=== PATIENT | female | born 1995 | race Caucasian/White ===

== ENCOUNTER 2016-05-31 13:56 | Emergency (ER) | payer BC ==
[2016-05-31 14:56] VITALS: BP 125/62
--- NOTE | 2016-05-31 16:02 | UC ---
Throat Pain/Nasal Chase HPI - HPI Summary HPI Summary: ONE DAY FEVER, SORE THROAT, MUSCLE ACHES, GETS FREQUENT STREP. NO FEVER. - History of Current Complaint Chief Complaint: UC Stated Complaint: THROAT PAIN FEVER Time Seen by Provider: 05/31/16 15:04 Hx Obtained From: Patient Hx Last Menstrual Period: 05/21/16 Onset/Duration: Gradual Onset, Lasting Days, Still Present Severity: Moderate Cough: None Associated Signs & Symptoms: Positive: Dysphagia, Hoarseness, Fever - Epiglottits Risk Factors Epiglottis Risk Factors: Negative - Allergies/Home Medications Allergies/Adverse Reactions: Allergies Allergy/AdvReac Type Severity Reaction Status Date / Time Hepatitis A Antigen Allergy Severe Anaphylatic Unverified 05/31/16 14:55 Shock Sulfa Antibiotics Allergy Unknown Flushing Unverified 05/31/16 14:55 PMH/Surg Hx/FS Hx/Imm Hx Previously Healthy: Yes Endocrine History Of: Denies: Diabetes, Thyroid Disease Cardiovascular History Of: Denies: Cardiac Disorders, Hypertension Respiratory History Of: Reports: Asthma - EXERCISE INDUCED Denies: COPD GI/ History Of: Denies: Ulcer - Surgical History Surgical History: Yes Surgery Procedure, Year, and Place: WISDOM TEETH EXTRACTED- ORAL SURGEON OFFICE. TONSILS-2015 - Family History Known Family History: Negative: Respiratory Disease - Social History Occupation: Student Lives: With Family Alcohol Use: Rare Substance Use Type: None Smoking Status (MU): Never Smoked Tobacco Review of Systems Constitutional: Fever Skin: Negative Eyes: Negative ENT: Sore Throat Respiratory: Negative Cardiovascular: Negative Gastrointestinal: Negative Genitourinary: Negative Motor: Negative Neurovascular: Negative Musculoskeletal: Myalgia Neurological: Negative Psychological: Negative All Other Systems Reviewed And Are Negative: Yes Physical Exam Triage Information Reviewed: Yes Appearance: Well-Appearing, No Pain Distress, Well-Nourished Vital Signs: Initial Vital Signs Temp 101.0 F 05/31/16 14:52 Pulse 118 05/31/16 14:52 Resp 18 05/31/16 14:52 BP 125/62 05/31/16 14:52 Pulse Ox 99 05/31/16 14:52 Vital Signs Reviewed: Yes Eye Exam: Normal ENT: Positive: Hearing grossly normal, Pharyngeal erythema, Nasal congestion, TMs normal, Tonsillar swelling Dental Exam: Normal Neck exam: Normal Neck: Positive: Supple, Nontender, No Lymphadenopathy Respiratory Exam: Normal Respiratory: Positive: Chest non-tender, Lungs clear, Normal breath sounds, No respiratory distress, No accessory muscle use Cardiovascular Exam: Normal Cardiovascular: Positive: RRR, No Murmur, Pulses Normal Abdominal Exam: Normal Abdomen Description: Positive: Nontender, No Organomegaly Musculoskeletal Exam: Normal Musculoskeletal: Positive: Strength Intact Neurological Exam: Normal Psychological Exam: Normal Psychological: Positive: Normal Response To Family Skin Exam: Normal Throat Pain/Nasal Course/Dx - Differential Dx/Diagnosis Differential Diagnosis/HQI/PQRI: Pharyngitis, Tonsillitis, URI Provider Diagnoses: TONSILITIS. VIRAL SYNDROME Discharge - Discharge Plan Condition: Stable Disposition: HOME Patient Education Materials: Pharyngitis (ED), Viral Syndrome (ED) Referrals: [place]ia Kaye MD [Primary Care Provider] -
== END 2016-05-31 15:52 | disposition home or self-care (01) ==
LOC: UCEAST 13:56
DX: J03.90 Acute tonsillitis, unspecified (principal); B34.9 Viral infection, unspecified; Z88.2 Allergy status to sulfonamides
CPT/HCPCS: 87502; 87651; 99211; G0463

== ENCOUNTER 2017-07-07 19:22 | Emergency (ER) | payer BC ==
[2017-07-07 19:31] VITALS: BP 114/65
--- NOTE | 2017-07-07 20:05 | UC ---
Throat Pain/Nasal Chase HPI - HPI Summary HPI Summary: couple of days of sore throat and fever seen at [facility] and was strp neg on - --patient is concerned because symptom continues. - History of Current Complaint Chief Complaint: UCRespiratory Stated Complaint: SORE THROAT AND FEVER Time Seen by Provider: 07/07/17 19:54 Hx Obtained From: Patient Hx Last Menstrual Period: 3.5 WEEKS AGO ?: No Onset/Duration: Gradual Onset, Lasting Days, Still Present Severity: Mild Pain Intensity: 0 Cough: None Associated Signs & Symptoms: Positive: Negative - Allergies/Home Medications Allergies/Adverse Reactions: Allergies Allergy/AdvReac Type Severity Reaction Status Date / Time Sulfa (Sulfonamide Allergy Flushing Verified 07/07/17 19:31 Antibiotics) HEPATITIS A ANTIGEN Allergy Severe Anaphylatic Uncoded 07/07/17 19:31 Shock Home Medications: Home Medications Control* 1 tab PO DAILY 07/07/17 [History Confirmed 07/07/17] Ibuprofen TAB* [Advil TAB*] 1,000 mg PO ONCE PRN 07/07/17 [History Confirmed ] PMH/Surg Hx/FS Hx/Imm Hx Previously Healthy: Yes - Surgical History Surgical History: Yes Surgery Procedure, Year, and Place: WISDOM TEETH EXTRACTED- ORAL SURGEON OFFICE. TONSILS-2015 - Family History Known Family History: Positive: None Negative: Respiratory Disease - Social History Occupation: Student Lives: With Family Alcohol Use: None Substance Use Type: None Smoking Status (MU): Never Smoked Tobacco Review of Systems Constitutional: Fever Skin: Negative Eyes: Negative ENT: Sore Throat Respiratory: Negative Cardiovascular: Negative Gastrointestinal: Negative Genitourinary: Negative Motor: Negative Neurovascular: Negative Musculoskeletal: Negative Neurological: Negative Psychological: Negative Is Patient Immunocompromised?: No All Other Systems Reviewed And Are Negative: Yes Physical Exam Triage Information Reviewed: Yes Appearance: Well-Appearing, No Pain Distress, Well-Nourished Vital Signs: Initial Vital Signs Temp 101.3 F 07/07/17 19:27 Pulse 129 07/07/17 19:27 Resp 16 07/07/17 19:27 BP 114/65 07/07/17 19:27 Pulse Ox 98 07/07/17 19:27 Vital Signs Reviewed: Yes Eye Exam: Normal Eyes: Positive: Conjunctiva Clear ENT Exam: Normal ENT: Positive: Normal ENT inspection, Hearing grossly normal, Pharyngeal erythema, TMs normal, Uvula midline. Negative: Nasal congestion, Trismus, Muffled voice, Hoarse voice, Sinus tenderness Dental Exam: Normal Neck exam: Normal Neck: Positive: Supple, Nontender, No Lymphadenopathy Respiratory Exam: Normal Respiratory: Positive: Chest non-tender, Lungs clear, Normal breath sounds, No respiratory distress Cardiovascular Exam: Normal Cardiovascular: Positive: No Murmur, Pulses Normal, Brisk Capillary Refill, Tachycardia Musculoskeletal Exam: Normal Musculoskeletal: Positive: Strength Intact, ROM Intact, No Edema Neurological Exam: Normal Neurological: Positive: Alert, Muscle Tone Normal Psychological Exam: Normal Skin Exam: Normal Diagnostics - Laboratory Diagnostic Studies Completed/Ordered: RApid strep and influenza A/B (-) Throat Pain/Nasal Course/Dx - Course Assessment/Plan: rest increase fluids, tylenol, ibuprofen , otc medications for symptom relief--lab studies cbc and mono follow with pcp prn - Differential Dx/Diagnosis Provider Diagnoses: viral illness, fever Discharge - Sign-Out/Discharge Documenting (check all that apply): Discharge - Discharge Plan Condition: Stable Disposition: HOME Patient Education Materials: Fever in Adults (ED), Viral Syndrome (ED) Forms: *Work Release Referrals: [facility] [place] PHYSICIAN REFERRAL [Outside] - If Needed - Billing Disposition and Condition Condition: STABLE Disposition: HOME
[2017-07-08 11:06] LABS: ABS Basophils 0.1 10^3/ul (0-0.2); ABS Eosinophils 0.2 10^3/ul (0-0.6); ABS Lymphocytes 1.5 10^3/ul (1.0-4.8); ABS Monocytes 0.6 10^3/ul (0-0.8); ABS Neutrophils 10.5 10^3/ul (1.5-7.7); ABS Nucleated RBC 0 10^3/ul; Eosinophil % 1.4 % (0-6); Hematocrit 37 % (35-47); Hemoglobin 12.7 g/dl (12.0-16.0); Lymphocyte % 11.4 % (25-47); Mean Corpuscular HGB Conc 34 g/dl (31-36); Mean Corpuscular Hemoglobin 29 pg (27-31); Mean Corpuscular Volume 85 fL (80-97); Mean Platelet Volume 8.8 um3 (7.4-10.4); Nucleated Red Blood Cells % 0.3; Platelet Count 269 10^3/ul (150-450); Red Cell Distribution Width 13 % (10.5-15); White Blood Count 12.8 10^3/ul (3.5-10.8)
--- NOTE | 2017-07-08 16:03 | UC ---
- Progress Note Progress Note: Please call patient know her mono is negative. If she's having continued fevers or symptoms she should follow with primary care Discharge - Sign-Out/Discharge Documenting (check all that apply): Post-Discharge Follow Up - Discharge Plan Condition: Stable Disposition: HOME Patient Education Materials: Fever in Adults (ED), Viral Syndrome (ED) Forms: *Work Release Referrals: [facility] [place] PHYSICIAN REFERRAL [Outside] - If Needed - Billing Disposition and Condition Condition: STABLE Disposition: HOME
== END 2017-07-07 20:39 | disposition home or self-care (01) ==
LOC: UCEAST 19:22
DX: B34.9 Viral infection, unspecified (principal); J02.9 Acute pharyngitis, unspecified; Z32.02 Encounter for pregnancy test, result negative; Z88.2 Allergy status to sulfonamides
CPT/HCPCS: 36415; 81003; 84702; 85025; 86308; 87502; 87651; 99211; G0463

== ENCOUNTER 2017-08-05 09:14 | Emergency (ER) | payer BC ==
[2017-08-05 09:22] VITALS: BP 114/61
--- NOTE | 2017-08-05 09:33 | UC ---
FLU HPI - HPI Summary HPI Summary: PT HERE WITH SEVERAL WEEKS OF MILD COUGH, SORE THROAT, PAIN WITH SWALLOWING, FEVER, FATIGUE AND BODY ACHES. SX HAVE BEEN INTERMITTENT. WAS SEEN 07/07 AND HAD NEG MONO. STREP DONE AT [facility] 07/04 ALSO NEG. SENT FROM WORK TODAY DUE TO PERSISTENT SX. PT WORKS AT [employer] [place] ALSO STATES SOME MILD SOB WITH EXERTION. - History of Current Complaint Chief Complaint: UCGeneralIllness Stated Complaint: FEVER Time Seen by Provider: 08/05/17 09:24 Hx Obtained From: Patient Hx Last Menstrual Period: 3.5 WEEKS AGO Onset/Duration: Gradual Onset, Lasting Weeks, Still Present Severity Currently: Moderate Severity Initially: Moderate Pain Intensity: 3 Pain Scale Used: 0-10 Numeric Associated Signs & Symptoms: Positive: Fever, Myalgia, Cough, Sore Throat, Nasal Congestion - Allergy/Home Medications Allergies/Adverse Reactions: Allergies Allergy/AdvReac Type Severity Reaction Status Date / Time Sulfa (Sulfonamide Allergy Flushing Verified 08/05/17 09:22 Antibiotics) HEPATITIS A ANTIGEN Allergy Severe Anaphylatic Uncoded 08/05/17 09:22 Shock PMH/Surg Hx/FS Hx/Imm Hx Respiratory History: Asthma - Surgical History Surgical History: Yes Surgery Procedure, Year, and Place: WISDOM TEETH EXTRACTED- ORAL SURGEON OFFICE. TONSILS-2015 - Family History Known Family History: Positive: Hypertension Negative: Respiratory Disease - Social History Alcohol Use: None Substance Use Type: None Smoking Status (MU): Never Smoked Tobacco Review of Systems Constitutional: Fever, Fatigue ENT: Sore Throat, Nasal Discharge Respiratory: Shortness Of Breath, Cough Cardiovascular: Negative Gastrointestinal: Negative Musculoskeletal: Myalgia All Other Systems Reviewed And Are Negative: Yes Physical Exam Triage Information Reviewed: Yes Appearance: Well-Appearing, No Pain Distress, Well-Nourished Vital Signs: Initial Vital Signs Temp 100.8 F 08/05/17 09:19 Pulse 126 08/05/17 09:19 Resp 18 08/05/17 09:19 BP 114/61 08/05/17 09:19 Pulse Ox 100 08/05/17 09:19 Vital Signs Reviewed: Yes Eyes: Positive: Conjunctiva Clear ENT: Positive: Hearing grossly normal, Pharynx normal, TMs normal Neck: Positive: Supple, Nontender, No Lymphadenopathy Respiratory Exam: Normal Cardiovascular: Positive: Tachycardia Abdomen Description: Positive: Soft Musculoskeletal: Positive: No Edema Neurological: Positive: Alert Psychological: Positive: Age Appropriate Behavior Skin: Negative: rashes Diagnostics - Laboratory Diagnostic Studies Completed/Ordered: FLU NEG. STREP NEG - Radiology CXR Xray Interpretation: No Acute Changes Radiology Interpretation Completed By: Radiologist Flu Course/Dx - Differential Dx/Diagnosis Provider Diagnoses: SUSPECTED INFECTIOUS MONONUCLEOSIS Discharge - Sign-Out/Discharge Documenting (check all that apply): Discharge/Admit/Transfer - Discharge Plan Condition: Stable Disposition: HOME Patient Education Materials: Mononucleosis (ED) Referrals: No Primary Care Phys,NOPCP [Primary Care Provider] - Additional Instructions: STREP AND FLU NEGATIVE TODAY. CHEST X-RAY UNREMARKABLE. YOUR PRESENTATION IS CONSISTENT WITH INFECTIOUS MONONUCLEOSIS. BLOOD DRAWN TODAY TO CHECK BLOOD COUNT AND MONOSPOT. NO INDICATION FOR ANTIBIOTICS AT PRESENT. CONSERVATIVE MANAGEMENT - REST, HYDRATE, ANTI-INFLAMMATORIES NEEDED. FOLLOW-UP WITH YOUR PRIMARY CARE PHYSICIAN AT [facility] IF YOU'RE NOT IMPROVING EXPECTED OVER THE NEXT SEVERAL WEEKS. - Billing Disposition and Condition Condition: STABLE Disposition: HOME
--- NOTE | 2017-08-05 10:31 | RAD ---
HISTORY: Cough, fever COMPARISONS: None VIEWS: 4: Frontal dual-energy and lateral views of the chest. FINDINGS: CARDIOMEDIASTINAL SILHOUETTE: The cardiomediastinal silhouette is normal. TRAVON: The travon are normal. PLEURA: The costophrenic angles are sharp. No pleural abnormalities are noted. LUNG PARENCHYMA: The lungs are clear. ABDOMEN: The upper abdomen is clear. There is no subphrenic gas. BONES AND SOFT TISSUES: No bone or soft tissue abnormalities are noted. OTHER: None. IMPRESSION: NO ACTIVE CARDIOPULMONARY DISEASE.
[2017-08-05 15:34] LABS: ABS Basophils 0 10^3/ul (0-0.2); ABS Eosinophils 0 10^3/ul (0-0.6); ABS Lymphocytes 0.5 10^3/ul (1.0-4.8); ABS Monocytes 0.4 10^3/ul (0-0.8); ABS Nucleated RBC 0 10^3/ul; Eosinophil % 0.1 % (0-6); Hematocrit 35 % (35-47); Hemoglobin 11.9 g/dl (12.0-16.0); Lymphocyte % 6.1 % (25-47); Mean Corpuscular HGB Conc 34 g/dl (31-36); Mean Corpuscular Hemoglobin 29 pg (27-31); Mean Corpuscular Volume 84 fL (80-97); Mean Platelet Volume 8.6 um3 (7.4-10.4); Nucleated Red Blood Cells % 0; Platelet Count 232 10^3/ul (150-450); Red Blood Count 4.16 10^6/ul (4.0-5.4); Red Cell Distribution Width 13 % (10.5-15)
== END 2017-08-05 11:09 | disposition home or self-care (01) ==
LOC: UCEAST 09:14
DX: R05 Cough (principal); R50.9 Fever, unspecified; R53.83 Other fatigue; M79.1 Myalgia; R06.02 Shortness of breath; J45.909 Unspecified asthma, uncomplicated; Z88.2 Allergy status to sulfonamides
CPT/HCPCS: 36415; 71046; 85025; 86308; 87502; 87651; 99211; G0463

== ENCOUNTER 2017-12-23 18:19 | Emergency (ER) | payer BC ==
[2017-12-23 18:43] VITALS: BP 123/65
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
--- NOTE | 2017-12-23 20:35 | RAD ---
Indication: Neck pain, neck injury 5 views of the cervical spine demonstrates straightening of the normal lordosis. Disc spaces all well-preserved. On the odontoid view there is lucency at the base of the odontoid. This is likely artifact. A repeat open-mouth views demonstrate the lucency to be more superiorly located consistent with artifact. IMPRESSION: Straightening of the normal lordosis. No fracture is noted.
== END 2017-12-23 20:30 | disposition home or self-care (01) ==
LOC: UCEAST 18:19
DX: M43.6 Torticollis (principal); M53.82 Other specified dorsopathies, cervical region; Z88.2 Allergy status to sulfonamides; Z88.7 Allergy status to serum and vaccine
CPT/HCPCS: 72020; 72050; 99211; G0463

== ENCOUNTER 2018-01-19 20:07 | Emergency (ER) | payer BC ==
[2018-01-19 20:15] VITALS: BP 116/69
--- NOTE | 2018-01-19 20:40 | UC ---
Skin Complaint HPI - HPI Summary HPI Summary: Patient presents with a red circular bull's-eye lesion that started on her right leg. Patient states this morning it was diffusely red. Patient states that the day has gotten larger in diameter and developed a central clearing. Patient states is not tender but mildly itchy. No drainage. No fevers or chills. No known tick bite, but states the grass a lot this summer and when the weather was nice last week. No other complaints. Patient is not immunocompromised. Patient does work and patient mental health. Pts medications reviewed this visit no concern - History of Current Complaint Chief Complaint: UCRash Time Seen by Provider: 01/19/18 20:40 Stated Complaint: RASH Hx Obtained From: Patient Hx Last Menstrual Period: [id number] Pain Intensity: 0 - Allergy/Home Medications Allergies/Adverse Reactions: Allergies Allergy/AdvReac Type Severity Reaction Status Date / Time Sulfa (Sulfonamide Allergy Flushing Verified 01/19/18 20:16 Antibiotics) HEPATITIS A ANTIGEN Allergy Severe Anaphylatic Uncoded 01/19/18 20:16 Shock Review of Systems Constitutional: Negative Skin: Rash All Other Systems Reviewed And Are Negative: Yes PMH/Surg Hx/FS Hx/Imm Hx Previously Healthy: Yes - Surgical History Surgical History: Yes Surgery Procedure, Year, and Place: WISDOM TEETH EXTRACTED- ORAL SURGEON OFFICE. TONSILS-2015 - Family History Known Family History: Positive: Hypertension Negative: Cardiac Disease, Diabetes, Respiratory Disease - Social History Occupation: Employed Full-time Lives: With Family Alcohol Use: None Substance Use Type: None Smoking Status (MU): Never Smoked Tobacco Physical Exam - Summary Physical Exam Summary: Vital Signs Reviewed: Yes A+Ox3, no distress Eyes: Conjunctiva Clear, BOYD. EOM intact and full ENT: Hearing grossly normal TM x 2 clear, mmoist, uvula midline, no exudate, no erythema Neck: Positive: Supple Respiratory: Positive: No respiratory distress, No accessory muscle use + CTA throughout no w/r Cardiovascular: RRR nl s1, s2 no m/r CBT <2 sec abd soft + BS nt/nd no guarding, no distension Musculoskeletal Exam: CASTLE x 4 without difficulty Strength Intact, ROM Intact Neurological: Positive: Alert, + sensation throughout Psychological: Positive: Normal Response To Family Skin: Positive: right lateral LE pt with 3x4 cm area erythema, flat, well demarcated with cental clearing mild warmth, no open wound, no drainage Triage Information Reviewed: Yes Vital Signs: Initial Vital Signs Temp 98.7 F 01/19/18 20:10 Pulse 87 01/19/18 20:10 Resp 16 01/19/18 20:10 BP 116/69 01/19/18 20:10 Pulse Ox 100 01/19/18 20:10 Course/Dx - Course Course Of Treatment: Patient presents with wound to her right leg. Patient states she denies tick bite but noticed a red area this morning. Patient states that the days progressive gotten larger and become central week help. Patient denies known tick exposure but states was outside in the grass quite a bit over the summer last week. 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 We'll start patient on doxycycline. Demarcate. Check Lyme titer. Patient given referral information to Dr. Dave. Strict return precautions. Wound care. Patient comfortable in agreement with plan. Patient declined work note. - Diagnoses Provider Diagnoses: rash. cellulitis Discharge - Sign-Out/Discharge Documenting (check all that apply): Patient Departure All imaging exams completed and their final reports reviewed: No Studies - Discharge Plan Condition: Stable Disposition: HOME Prescriptions: DOXYcycline CAP(*) [DOXYcycline 100MG CAP(*)] 100 mg PO BID #41 cap Patient Education Materials: Lyme Disease (ED), Cellulitis (ED) Referrals: [facility] [Provider Group] John YUSUF,Alvarez Vasquez [Medical Doctor] - No Primary Care Phys,NOPCP [Primary Care Provider] - Additional Instructions: - Take antibiotics 2 times a day as prescribed - monitor your wound for increased reddness, red streaking, fever or chills. If you have concerns, contact your doctor or go to the emergency department - your blood has been tested for Lyme disease - these results take 7-10 days to come back. You have been given the full course of treatment for Lyme disease. It is recommended you schedule a follow-up appointment with your doctor or Dr. Dave, the infectious disease specialist. - Billing Disposition and Condition Condition: STABLE Disposition: Home
[2018-01-19] MEDS ORDERED: DOXYcycline CAP(*) 100 MG PO ONE ×2 (20:54→21:15)
--- NOTE | 2018-01-22 07:27 | UC ---
- Progress Note Progress Note: Lyme antibodies negative. Given full course of doxy due to Bull's eye rash. No further action to take at this time. Discharge - Sign-Out/Discharge Documenting (check all that apply): Post-Discharge Follow Up All imaging exams completed and their final reports reviewed: No Studies - Discharge Plan Condition: Stable Disposition: HOME Prescriptions: DOXYcycline CAP(*) [DOXYcycline 100MG CAP(*)] 100 mg PO BID #41 cap Patient Education Materials: Lyme Disease (ED), Cellulitis (ED) Referrals: [facility] [Provider Group] John YUSUF,Alvarez Vasquez [Medical Doctor] - No Primary Care Phys,NOPCP [Primary Care Provider] - Additional Instructions: - Take antibiotics 2 times a day as prescribed - monitor your wound for increased reddness, red streaking, fever or chills. If you have concerns, contact your doctor or go to the emergency department - your blood has been tested for Lyme disease - these results take 7-10 days to come back. You have been given the full course of treatment for Lyme disease. It is recommended you schedule a follow-up appointment with your doctor or Dr. Lopez, the infectious disease specialist. - Billing Disposition and Condition Condition: STABLE Disposition: Home
== END 2018-01-19 21:25 | disposition home or self-care (01) ==
LOC: UCEAST 20:07
DX: R21 Rash and other nonspecific skin eruption (principal); L03.115 Cellulitis of right lower limb; Z88.2 Allergy status to sulfonamides
CPT/HCPCS: 86618; 99212; A9270-GY; G0463

== ENCOUNTER 2018-04-16 16:23 | Emergency (ER) | payer BC ==
[2018-04-16 16:49] VITALS: BP 136/77
--- OUTSIDE RECORDS SUMMARY | 2018-04-16 17:00 | XMS REPORT ---
:1995 External Reference #:[id number] Author Organization [facility] Address [address] [place] [address] Phone [phone] Care Team Providers Name Role Phone Polina Gaston M.D. Care Team Information Thermostat Maker Unavailable Polina Gaston M.D. Primary Care Physician Unavailable Payers Type Date Identification Numbers Payment Provider Subscriber Commercial Effective: Policy Number: [id number] [employer] Plan Reed Nazario 2006 PayID: [id number] [address] [place] [address] Problems Description No Information Family History Date Family Member(s) Problem(s) Comments Father Obesity Father Adopted Mother Obesity Maternal Grandmother Ovarian Cancer Social History Description No Information Available Allergies, Adverse Reactions, Alerts Date Description Reaction Status Severity Comments 01/28/2017 Sulfa Antibiotics facial swelling, rash active 01/28/2017 Hepatitis A Vaccine throat swelling active (Inactivated) Strain HM175 Medications Medication Date Status Form Strength Qnty SIG Indications Ordering Provider Proair HFA Active Aerosol 108(90Base) 2 puffs Unknown 00 mcg/Act every 4 hours as needed Previfem Active Tablets 0.25-35mg-mc 84tabs take one Emilia C. 00 g tablet by perico Skelton [employer]PER[employer] every day Immunizations CPT Code Status Date Vaccine Lot # [id number] Given 01/28/2017 Tetanus And Diptheria Adult Preservative Free [id number] >7Yrs 11865 Given 01/28/2017 Influenza Vac, Quadrivalent, Slit Virus, Im [id number] 17686 Given 11/24/2006 Tdap Tetanus, W Pertussis 81153 Given 10/23/1999 (IPV) Inactive Poliovirus Vaccine 68349 Given 10/23/1999 MMR Virus Immunization 55170 Given 10/23/1999 DTaP Immunization 45324 Given 07/09/1998 Varicella (Chicken Pox) Immunization 04290 Given 02/20/1996 (IPV) Inactive Poliovirus Vaccine 45801 Given 02/20/1996 MMR Virus Immunization 84651 Given 02/20/1996 DTaP Immunization 52313 Given 02/20/1996 Hib PRP-T Conjugate 4 Dose Schedule 12619 Given 1995 Hib PRP-T Conjugate 4 Dose Schedule 82695 Given 1995 DTaP Immunization 37797 Given 1995 (IPV) Inactive Poliovirus Vaccine 92420 Given 1995 Hepatitis B Immunization, -19 Years 39186 Given 1995 Hepatitis B Immunization, Pimento-19 Years 00820 Given 1995 (IPV) Inactive Poliovirus Vaccine 48656 Given 1995 DTaP Immunization 26453 Given 1995 Hib PRP-T Conjugate 4 Dose Schedule 44630 Given 1995 Hepatitis B Immunization, -19 Years 37824 Given 1995 (IPV) Inactive Poliovirus Vaccine 20043 Given 1995 DTaP Immunization 77350 Given 1995 Hib PRP-T Conjugate 4 Dose Schedule Vital Signs Date Vital Result Comment 03/22/2018 BP Systolic 110 mmHg BP Diastolic 70 mmHg Heart Rate 68 /min Body Temperature 98.1 F Respiratory Rate 16 /min Height 67 inches 5'7" Weight 159.00 lb BMI (Body Mass Index) 24.9 kg/m2 01/28/2017 BP Systolic 102 mmHg BP Diastolic 75 mmHg Heart Rate 64 /min Body Temperature 98.4 F Height 67 inches 5'7" Weight 154.00 lb BMI (Body Mass Index) 24.1 kg/m2 Right Visual Acuity Distance 20/20 Left Visual Acuity Distance 20/20 Results Test Date Test Result H/L Range Note CBC With Differential/Platelet 01/28/2017 WBC 4.7 x10E3/uL 3.4-10.8 RBC 4.87 x10E6/uL 3.77-5.28 Hemoglobin 14.2 g/dL 11.1-15.9 Hematocrit 43.8 % 34.0-46.6 MCV 90 fL 79-97 MCH 29.2 pg 26.6-33.0 MCHC 32.4 g/dL 31.5-35.7 RDW 12.9 % 12.3-15.4 Platelets 264 x10E3/uL 150-379 Neutrophils 62 % Not Estab. Lymphs 32 % Not Estab. Monocytes 3 % Not Estab. Eos 2 % Not Estab. Basos 1 % Not Estab. Immature Cells TNP Neutrophils (Absolute) 2.9 x10E3/uL 1.4-7.0 Lymphs (Absolute) 1.5 x10E3/uL 0.7-3.1 Monocytes(Absolute) 0.2 x10E3/uL 0.1-0.9 Eos (Absolute) 0.1 x10E3/uL 0.0-0.4 Baso (Absolute) 0.1 x10E3/uL 0.0-0.2 Immature Granulocytes 0 % Not Estab. Immature Grans (Abs) 0.0 x10E3/uL 0.0-0.1 NRBC TNP Hematology Comments: TNP Metabolic Panel (14), Comprehensive 01/28/2017 Glucose, Serum 88 mg/dL 65 -99 BUN 15 mg/dL 6-20 Creatinine, Serum 0.76 mg/dL 0.57-1.00 eGFR If NonAfricn Am 112 mL/min/1.73 >59 eGFR If Africn Am 130 mL/min/1.73 >59 BUN/Creatinine Ratio 20 9-23 Sodium, Serum 142 mmol/L 134-144 Potassium, Serum 4.2 mmol/L 3.5-5.2 Chloride, Serum 102 mmol/L 96-106 Carbon Dioxide, Total 23 mmol/L 18-29 Calcium, Serum 9.1 mg/dL 8.7-10.2 Protein, Total, Serum 7.3 g/dL 6.0-8.5 Albumin, Serum 4.2 g/dL 3.5-5.5 Globulin, Total 3.1 g/dL 1.5-4.5 A/G Ratio 1.4 1.2-2.2 Bilirubin, Total 0.3 mg/dL 0.0-1.2 Alkaline Phosphatase, S 54 IU/L 39-117 Ast (Sgot) 17 IU/L 0-40 Alt (SGPT) 9 IU/L 0-32 Lipid Panel 01/28/2017 Cholesterol, Total 186 mg/dL 100-199 Triglycerides 47 mg/dL 0-149 HDL Cholesterol 80 mg/dL >39 VLDL Cholesterol Uzair 9 mg/dL 5-40 LDL Cholesterol Calc 97 mg/dL 0-99 Comment: TNP Laboratory test finding 01/28/2017 TSH 1.600 uIU/mL 0.450-4.500 Procedures Date CPT Code Description Status 01/28/2017 57117 Vision Test- screening test of visual acuity, Completed quantitative, bila Encounters Type Date Location Provider CPT E/M Dx Office Visit 01/28/2017 8:30a [facility] Office Thelma Rodríguez, [facility] [address] Z30.09 J45.990 J02.9 Z00.01 Z23 Plan of Care 03/22/2018 - Emilia Skelton, NPZ30.09 Encounter for oth general coun and advice on contraceptionComments:You are in excellent general health. I recommend regular physical exams with attention to good nutrition and exercise, eye exams every other year, and dental exams twice yearly. ~B_~U_Goals:~u_~b_2 fresh fruits daily3 helpings of fresh green and multicolored vegetablesEat from the whole color spectrum. 40-60 Oz water daily~B_~U_MOVE YOUR BODY.~u_~b_ Bodies were made to be moved. exercise 30 minutes at least 4-5 times [id number] Encntr screen for infections w sexl mode of transmissNew Labs: Chlamydia/GC Amplified ProbeHIV 1&2 Antibody Screen (Fma)RPR ([facility]/ [facility])AllComments:1. Patient has been queried about patient's goals/preferences and functional/lifestyle goals at relevant visits. If relevant, describe: Has been discussed, noted above2. Treatment goals as explainedto the patient: see above3. Are there barriers to meeting treatment goals? Yes If Yes, please describe: Barriers include possible insurance limits, disease process, and difficulty with lifestyle changes4. Self-Management goals as described to the patient: Yes, see above As always, we strongly encourage a healthy diet and making physical activity a part of your every day life. If you have questions about how or where to start, please contact the office.
[2018-04-16] MEDS ORDERED: Tetan/Diph/Pertus SYR(Tdap)* 0.5 ML SYR(BOOSTRIX) use SYR IM ONE (18:40)
--- NOTE | 2018-04-16 18:40 | ED ---
Laceration/Wound HPI - HPI Summary HPI Summary: 23-year-old female presents with right index finger laceration today. States she cut it on a knife. There is no active bleeding at this time. Tetanus up-to -date. Has no medical conditions. 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 - History of Current Complaint Stated Complaint: RT INDEX FINGER LAC Time Seen by Provider: 04/16/18 17:44 Hx Last Menstrual Period: [id number] Pain Intensity: 0 - Allergy/Home Medications Allergies/Adverse Reactions: Allergies Allergy/AdvReac Type Severity Reaction Status Date / Time Sulfa (Sulfonamide Allergy Flushing Verified 04/16/18 16:50 Antibiotics) HEPATITIS A ANTIGEN Allergy Severe Anaphylatic Uncoded 04/16/18 16:50 Shock PMH/Surg Hx/FS Hx/Imm Hx Endocrine/Hematology History: Denies: Hx Diabetes, Hx Thyroid Disease Cardiovascular History: Denies: Hx Hypertension Respiratory History: Reports: Hx Asthma - EXERCISE INDUCED Denies: Hx Chronic Obstructive Pulmonary Disease (COPD) GI History: Denies: Hx Ulcer Musculoskeletal History: Denies: Hx Scoliosis Sensory History: Denies: Hx Contacts or Glasses, Hx Hearing Aid Opthamlomology History: Denies: Hx Contacts or Glasses Neurological History: Denies: Hx Headaches, Other Neuro Impairments/Disorders - Surgical History Surgery Procedure, Year, and Place: WISDOM TEETH EXTRACTED- ORAL SURGEON OFFICE. TONSILS-2015 Hx Anesthesia Reactions: No Infectious Disease History: No Infectious Disease History: Denies: Hx Hepatitis, Hx Human Immunodeficiency Virus (HIV), Traveled Outside the [place] in Last 30 Days - Family History Known Family History: Positive: None, Hypertension Negative: Cardiac Disease, Diabetes, Respiratory Disease - Social History Alcohol Use: None Substance Use Type: Reports: None Smoking Status (MU): Never Smoked Tobacco Review of Systems Negative: Fever Negative: Chest Pain Negative: Shortness Of Breath Positive: Myalgia - right index finger laceration All Other Systems Reviewed And Are Negative: Yes Physical Exam Triage Information Reviewed: Yes Vital Signs On Initial Exam: Initial Vitals Temp Pulse Resp BP Pulse Ox 98.4 F 81 16 136/77 100 04/16/18 16:47 04/16/18 16:47 04/16/18 16:47 04/16/18 16:47 04/16/18 16:47 Vital Signs Reviewed: Yes Appearance: Positive: Well-Appearing Skin: Positive: Warm, Dry, Other - 2cm superficial laceration to right index finger at proximal phalanx Head/Face: Positive: Normal Head/Face Inspection Eyes: Positive: Normal, Conjunctiva Clear ENT: Positive: Pharynx normal Respiratory/Lung Sounds: Positive: Clear to Auscultation, Breath Sounds Present Cardiovascular: Positive: Normal, RRR Musculoskeletal: Positive: Strength/ROM Intact - right index, Other - capillary refill<2secs Neurological: Positive: Normal Psychiatric: Positive: Normal Procedures - Laceration/Wound Repair 1 Location: Other - right index finger laceration Description: Linear Anesthesia: Digital, 1.0% Length, Depth and Shape: 2cm superficial Irrigated w/ Saline (ccs): 100 Closure: Single Layer Suture Type: Prolene Number of Sutures: 3 Sterile Dressing Applied?: No - telfa and metal finger splint Diagnostics - Vital Signs Vital Signs Temp Pulse Resp BP Pulse Ox 04/16/18 16:47 98.4 F 81 16 136/77 100 - Laboratory Lab Statement: Any lab studies that have been ordered have been reviewed, and results considered in the medical decision making process. Laceration Repair Course/Dx - Course Course Of Treatment: 23-year-old female presents with right index finger laceration today. States she cut it on a knife. There is no active bleeding at this time. Tetanus up-to-date. Has no medical conditions. 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 On exam has superficial laceration at the proximal phalanx of the right index finger. Full range of motion of finger. Cleaned area and place [address] a metal finger splint on the finger. told keep clean and dry. Patient understands agrees with plan. - Differential Dx Differental Diagnoses: Abrasion, Avulsion, Laceration - Clinical Impression Provider Diagnoses: Laceration of index finger Discharge - Sign-Out/Discharge Documenting (check all that apply): Patient Departure - Discharge Plan Condition: Good Disposition: HOME Patient Education Materials: Care For Your Stitches (ED) Referrals: Thelma Rodríguez NP [Primary Care Provider] - Additional Instructions: Take Tylenol or ibuprofen for pain every 6 hours as needed Keep area clean and dry for 24 hours Return to ED or primary in 7-10 days to have sutures removed Return to ED if develop signs of infection such as fever, spreading redness, or pus. - [place] Disposition and Condition Condition: GOOD Disposition: Home
== END 2018-04-16 18:50 | disposition home or self-care (01) ==
LOC: ED 16:23
DX: S61.210A Laceration without foreign body of right index finger without damage to nail, initial encounter (principal); W26.0XXA Contact with knife, initial encounter; Y92.9 Unspecified place or not applicable; Z88.2 Allergy status to sulfonamides
CPT/HCPCS: 12001; 99282

== ENCOUNTER 2019-04-13 10:18 | Emergency (ER) | payer BC ==
--- NOTE | 2019-04-13 10:23 | UC ---
Respiratory Complaint HPI - HPI Summary HPI Summary: 24 yo female presents with resp distress. She tells me that for the last 3 days she has had a mild cough. Over the last 2 days has felt very short of breath and has increased work of breathing. Today she feels pressure and heaviness on her chest. She reports having a temp of 105F around 0200 today that resolved with tylenol. She does have a hx of exercise induced asthma, but has never had issues with asthma beyond that. She has an albuterol inhaler at home that she has been using with very slight improvement intermittently. She is on OBC. She denies sinus symptoms, sore throat, abdominal pain, back pain. She does not smoke - History of Current Complaint Stated Complaint: SOB,CHEST PRESSURE, FEVER Time Seen by Provider: 04/13/19 10:23 Hx Obtained From: Patient Hx Last Menstrual Period: [id number] Onset/Duration: Gradual Onset Severity Initially: Moderate Severity Currently: Severe Pain Intensity: 8 Pain Scale Used: 0-10 Numeric - Allergies/Home Medications Allergies/Adverse Reactions: Allergies Allergy/AdvReac Type Severity Reaction Status Date / Time Sulfa (Sulfonamide Allergy Flushing Verified 04/13/19 11:24 Antibiotics) HEPATITIS A ANTIGEN Allergy Severe Anaphylatic Uncoded 04/13/19 11:24 Shock Home Medications: Home Medications buPROPion HCl [Wellbutrin Sr] 150 mg PO 04/13/19 [History] PMH/Surg Hx/FS Hx/Imm Hx Psychological History: Depression - Surgical History Surgical History: Yes Surgery Procedure, Year, and Place: WISDOM TEETH EXTRACTED- [facility]AL SURGEON OFFICE. TONSILS-2015 - Family History Known Family History: Positive: Hypertension Negative: Cardiac Disease, Diabetes, Respiratory Disease - Social History Occupation: Employed Full-time Lives: With Family Alcohol Use: None Substance Use Type: None Smoking Status (MU): Never Smoked Tobacco Review of Systems All Other Systems Reviewed And Are Negative: No Constitutional: Positive: Fever Skin: Positive: Negative Eyes: Positive: Negative ENT: Positive: Negative Respiratory: Positive: Shortness Of Breath, Cough Cardiovascular: Positive: Chest Pain Gastrointestinal: Positive: Negative Genitourinary: Positive: Negative Neurovascular: Positive: Negative Neurological: Positive: Negative Psychological: Positive: Negative Physical Exam - Summary Physical Exam Summary: GENERAL: Moderate resp distress SKIN: No rashes, sores, lesions, or open wounds. HEENT: Head: AT/NC Eyes: EOM intact. Conjunctiva clear without inflammation or discharge. Ears: Hearing grossly normal. TMs intact, no bulging, erythema, or edema. Nose: Nasal mucosa pink and moist. NTTP maxillary and frontal sinus. Throat: Posterior oropharynx without exudates, erythema, or tonsillar enlargement. Uvula midline. NECK: Supple. Nontender. No lymphadenopathy. CHEST: CTAB. Tripod breathing. Increased resp rate. CV: Tachycardic. Pulses intact. Cap refill <2seconds NEURO: Alert. PSYCH: Age appropriate behavior. Triage Information Reviewed: Yes Vital Signs: Vital Signs (72 hours) 04/13/19 04/13/19 10:27 10:52 Temperature 99.3 F Pulse Rate 124 116 Respiratory 24 Rate Blood Pressure 129/87 (mmHg) O2 Sat by Pulse 99 98 Oximetry Vital Signs Reviewed: Yes Diagnostics - EKG Summary of EKG Findings: Sinus tach 108. No STEMI as read by Dr. Goins Respiratory Course/Dx - Course Course Of Treatment: On initial presentation vital signs by myself - HR 130, resp rate 35, and O2% 93 %. Given her history of asthma, it was attempted to treat as an asthma exacerbation with duoneb and solumedrol. During the duoneb treatment, however, pt began to have worsening shortness of breath and worsening chest pain/ pressure. Remained tachycardic and tachypneic. Well's score 4.5. Strong concern for PE. Discussed this with pt and recommended transfer to ED via EMS. She was agreeable to this. She was placed on 2L NC and was still tachypneic, but was breathing easier overall and in less distress. Report called to [facility]. Left via EMS in stable condition. - Differential Dx/Diagnosis Provider Diagnosis: Respiratory distress Discharge ED - Sign-Out/Discharge Documenting (check all that apply): Patient Departure All imaging exams completed and their final reports reviewed: No Studies - Discharge Plan Condition: Stable Disposition: TRANS HIGHER LVL OF CARE FAC Referrals: Thelma Rodríguez NP [Primary Care Provider] - - Billing Disposition and Condition Condition: STABLE Disposition: Trans Higher Lvl of Care Fac
[2019-04-13] MEDS ORDERED: Albuterol/Ipratropium NEB.SOL* Albuterol 2.5 MG/Ipratropium 0.5 MG 3 ML INH ONE (10:28)
[2019-04-13] MEDS ORDERED: methylPREDNISolone 125 MG* 2 ML VIAL IM ONE (10:28)
[2019-04-13 10:30] VITALS: BP 129/87
[2019-04-13] MEDS ORDERED: NS 0.9% 1000 ML** 1,000 ML IV ONE (10:43)
[2019-04-13] MEDS ORDERED: methylPREDNISolone 125 MG* 2 ML VIAL IV ONE (10:44)
== END 2019-04-13 10:55 | disposition short-term general hospital (02) ==
LOC: UCEAST 10:18
DX: R06.03 Acute respiratory distress (principal); F32.9 Major depressive disorder, single episode, unspecified; R50.9 Fever, unspecified; R05 Cough; Z79.899 Other long term (current) drug therapy; Z88.2 Allergy status to sulfonamides; Z88.8 Allergy status to other drugs, medicaments and biological substances
CPT/HCPCS: 96360; 96374; 99213; A9270-GY; G0463; J2930

== ENCOUNTER 2019-04-13 11:20 | Emergency (ER) | payer BC ==
[2019-04-13] MEDS ORDERED: NS 0.9% 1000 ML** 1,000 ML IV ONE (11:21)
--- NOTE | 2019-04-13 11:28 | ED ---
Shortness of Breath - HPI Summary HPI Summary: 24-year-old female with a significant past medical history of anxiety and exercise-induced asthma presents to the emergency department today complaining of shortness of breath for 3 days. Patient was recently seen in urgent care where they sent her here to rule out pulmonary embolism. Patient takes oral contraceptives but denies recent travel or surgery. Patient is currently in mild respiratory distress with evidence of accessory muscle use in the emergency department. Patient also endorses associated cough and fatigue and chest pressure. Pt denies abdominal pain, rash, pain urination, hemoptysis. Patient denies recent recreational drug use or alcohol use. Family history and surgical history noncontributory. - History of Current Complaint Time Seen by Provider: 04/13/19 11:21 Hx Obtained From: Patient Onset/Duration: Gradual Onset Current Severity: Moderate Dyspnea At: Rest Aggravating Factors: Movement, Deep Breaths Alleviating Factors: Oxygen, Upright Position Associated Signs & Symptoms: Cough (Nonproductive) - Allergy/Home Medications Allergies/Adverse Reactions: Allergies Allergy/AdvReac Type Severity Reaction Status Date / Time Sulfa (Sulfonamide Allergy Flushing Verified 04/13/19 11:24 Antibiotics) HEPATITIS A ANTIGEN Allergy Severe Anaphylatic Uncoded 04/13/19 11:24 Shock PMH/Surg Hx/FS Hx/Imm Hx Endocrine/Hematology History: Denies: Hx Diabetes, Hx Thyroid Disease Cardiovascular History: Denies: Hx Hypertension Respiratory History: Reports: Hx Asthma - EXERCISE INDUCED Denies: Hx Chronic Obstructive Pulmonary Disease (COPD) GI History: Denies: Hx Ulcer Musculoskeletal History: Denies: Hx Scoliosis Sensory History: Denies: Hx Contacts or Glasses, Hx Hearing Aid Opthamlomology History: Denies: Hx Contacts or Glasses Neurological History: Denies: Hx Headaches, Other Neuro Impairments/Disorders - Surgical History Surgery Procedure, Year, and Place: WISDOM TEETH EXTRACTED- ORAL SURGEON OFFICE. TONSILS-2015 Hx Anesthesia Reactions: No Infectious Disease History: Denies: Hx Hepatitis, Hx Human Immunodeficiency Virus (HIV) - Family History Known Family History: Positive: None, Hypertension Negative: Cardiac Disease, Diabetes, Respiratory Disease - Social History Alcohol Use: None Substance Use Type: Reports: None Smoking Status (MU): Never Smoked Tobacco Review of Systems Positive: Fatigue. Negative: Fever, Chills, Skin Diaphoresis Eyes: Negative ENT: Negative Positive: Chest Pain Positive: Shortness Of Breath, Cough Gastrointestinal: Negative Genitourinary: Negative Musculoskeletal: Negative Skin: Negative Neurological: Negative Positive: Anxious All Other Systems Reviewed And Are Negative: Yes Physical Exam - Summary Physical Exam Summary: Patient is in mild respiratory distress with accessory muscle use in the emergency department. Patient speaking in 3 with broken sentences. No audible stridor or wheezing noted. Diminished breath sounds throughout and patient is unable to take deep breaths. Cough noted. No evidence of hemoptysis. Triage Information Reviewed: Yes Vital Signs Reviewed: Yes Appearance: Positive: Well-Appearing, No Pain Distress, Well-Nourished Skin: Positive: Warm, Skin Color Reflects Adequate Perfusion Eyes: Positive: EOMI, BOYD ENT: Positive: Hearing grossly normal Respiratory/Lung Sounds: Positive: Clear to Auscultation, Breath Sounds Present , Decreased Breath Sounds, Fatigue. Negative: Rales, Rhonchi, Stridor, Wheezes Cardiovascular: Positive: Tachycardia, S1, S2 Abdomen Description: Positive: Nontender, Soft. Negative: Distended, Guarding Bowel Sounds: Positive: Present Musculoskeletal: Positive: Strength/ROM Intact Neurological: Positive: Sensory/Motor Intact, Alert, Oriented to Person Place, Time, Normal Gait, Speech Normal Psychiatric: Positive: Affect/Mood Appropriate, Anxious AVPU Assessment: Alert Procedures - Sedation Patient Received Moderate/Deep Sedation with Procedure: No Diagnostics - Laboratory Result Diagrams: 04/13/19 11:43 04/13/19 11:43 Lab Statement: Any lab studies that have been ordered have been reviewed, and results considered in the medical decision making process. Course/Dx - Course Course Of Treatment: Patient was seen in the emergency department for shortness of breath. The patient was seen and examined her vitals show tachycardia at 104bpm but no fever. An EKG was done promptly which showed sinus tachycardia at a rate of 104 bpm. No evidence of STEMI. There are T-wave inversions in lead 3. Labs show mild leukocytosis with a white blood cell count of 13.8 with a left shift. No evidence of anemia. Negative test, negative d- dimer. No other significant electrolyte abnormalities. D-dimer ruled out possibility of pulmonary embolism. Chest x-ray was done which showed bibasilar airspace disease consistent with pneumonia. Patient was given one dose of azithromycin 500 mg in the emergency department and given a prescription for doxycycline 100 mg twice a day for 7 days for outpatient therapy. Patient is to follow-up with her PCP in 3 days. - Diagnoses Differential Diagnosis/HQI/PQRI: Positive: Airway Obstruction, Asthma, Bronchitis, Pneumothorax, Pulmonary Embolism, Pulmonary Edema Provider Diagnoses: Dyspnea, Pneumonia Discharge ED - Sign-Out/Discharge Documenting (check all that apply): Patient Departure - Discharge Plan Condition: Stable Disposition: HOME Prescriptions: Albuterol 2.5MG/3ML (0.083%)* [Ventolin 2.5 MG/3 ML NEB.YANDEL*] 2.5 mg INH Q4H # 20 neb.yandel DOXYcycline CAP(*) [DOXYcycline 100MG CAP(*)] 100 mg PO BID #14 cap Patient Education Materials: Pneumonia (ED) Forms: *Work Release Referrals: Thelma Rodríguez NP [Primary Care Provider] - 3 Days Additional Instructions: You were seen in the emergency department today and diagnosed with pneumonia. Please follow-up with your primary care physician in 3 days for further evaluation and management. To treat your pneumonia please take doxycycline 100 mg twice daily for 7 days. Please finish the entire course of antibiotics even if you begin to feel better. You may also take Tylenol as needed for fever. Please also consider taking Mucinex and other decongestants. You may also use your albuterol inhaler for further relief of symptoms. I have also prescribed albuterol nebulizer solution which may be picked up your pharmacy which may use with an [id number] nebulizer machine. Please return to the emergency department immediately if you develop any new or worsening symptoms such as increasing shortness of breath, fever over 102.0, altered mental status. - Billing Disposition and Condition Condition: STABLE Disposition: Home - Attestation Statements Provider Attestation: I was available for consult. This patient was seen by the JENN. The patient was not presented to, seen by, or examined by me. Silvano Segal MD
--- OUTSIDE RECORDS SUMMARY | 2019-04-13 11:45 | XMS REPORT | Continuity of Care Document ---
:1995 External Reference #:[id number] Author Name Polina Gaston M.D. Address [address] [place] [address] Care Team Providers Name Role Phone Polina Gaston M.D. - Family Medicine Care Team Information Clinical Veterinarian Unavailable Problems Active Problems Provider Date Adjustment disorder with depressed mood Polina Gaston M.D. Onset: 02/12/2019 Social History Type Date Description Comments Sex Unknown Tobacco Use Reviewed: 02/12/19 Patient is a current 2-3 cigs a day cigarette smoker, smokes every day Tobacco Use Start: Unknown Current Cigarette Smoker 1-5 Cigarettes Daily Smoking Status Reviewed: 02/12/19 Patient is a current 2-3 cigs a day cigarette smoker, smokes every day ETOH Use Occasional 1-4x a month, up to 6-7 outings Exercise Exercises sporadically Type/Frequency Allergies, Adverse Reactions, Alerts Active Allergies Reaction Severity Comments Date Sulfa Antibiotics facial swelling, rash 01/28/2017 Hepatitis A Vaccine (Inactivated) throat swelling 01/28/2017 Strain HM175 Medications Active Medications SIG Qnty Indications Ordering Provider Date Escitalopram Oxalate 1 by mouth 30tabs F32.1 Polina Gaston, 02/12/2019 5mg every day M.D. Tablets Proair HFA 2 puffs every 4 Unknown 108(90Base) hours as needed mcg/Act Aerosol Previfem take one tablet 168tabs Polina Gaston, 0.25-35mg-mcg by mouth every M.D. Tablets day Immunizations CPT Code Status Date Vaccine Lot # [id number] Given 03/22/2018 Gardasil vacine typs 6,11,16,18 3 dose schedule [id number] Given 01/28/2017 Tetanus And Diptheria Adult Preservative Free [id number] >7Yrs 01980 Given 01/28/2017 Influenza Vac, Quadrivalent, Slit Virus, Im [id number] 88883 Given 11/24/2006 Tdap Tetanus, W Pertussis 25807 Given 10/23/1999 IPV Inactive Poliovirus Vaccine 14897 Given 10/23/1999 MMR Virus Immunization 86191 Given 10/23/1999 DTaP Immunization 42015 Given 07/09/1998 Varicella (Chicken Pox) Immunization 90233 Given 02/20/1996 IPV Inactive Poliovirus Vaccine 10298 Given 02/20/1996 MMR Virus Immunization 85396 Given 02/20/1996 DTaP Immunization 33962 Given 02/20/1996 Hib PRP-T Conjugate 4 Dose Schedule 29521 Given 1995 Hib PRP-T Conjugate 4 Dose Schedule 96430 Given 1995 DTaP Immunization 35766 Given 1995 IPV Inactive Poliovirus Vaccine 17878 Given 1995 Hepatitis B Immunization, -19 Years 83122 Given 1995 Hepatitis B Immunization, [place]-19 Years 94027 Given 1995 IPV Inactive Poliovirus Vaccine 56342 Given 1995 DTaP Immunization 88073 Given 1995 Hib PRP-T Conjugate 4 Dose Schedule 62854 Given 1995 Hepatitis B Immunization, -19 Years 29701 Given 1995 IPV Inactive Poliovirus Vaccine 66427 Given 1995 DTaP Immunization 13601 Given 1995 Hib PRP-T Conjugate 4 Dose Schedule Vital Signs Date Vital Result Comment 02/12/2019 4:51pm BP Systolic 110 mmHg BP Diastolic 70 mmHg Heart Rate 78 /min Body Temperature 99.6 F Respiratory Rate 18 /min Height 67 inches 5'7" 03/22/2018 9:31am BP Systolic 110 mmHg BP Diastolic 70 mmHg Heart Rate 68 /min Body Temperature 98.1 F Respiratory Rate 16 /min Height 67 inches 5'7" Weight 159.00 lb BMI (Body Mass Index) 24.9 kg/m2 Results Description No Information Available Procedures Description No Information Available Medical Devices Description No Information Available Encounters Description No Information Available Assessments Date Code Description Provider 02/12/2019 Z11.3 Encounter for screening for infections with a Polina Gaston M.D. predominantly sexual mode of transmission 02/12/2019 F43.21 Adjustment disorder with depressed mood Polina Gaston M.D. Plan of Treatment 02/12/2019 - Polina Gaston M.D.Z11.3 Encounter for screening for infections with a predominantly sexual mode of transmissionNew Labs:HIV 1 2 AB Self Referred, Ordered: 02/12/19Hepatitis C AB W/RFX Riba, Ordered: Hepatitis B Surface Antigen, Ordered: 02/12/19RPR ([facility]), Ordered: 02/12/19gc/chlam aptima urine ctx, Ordered: 02/12/19Comments:check labs Recommend annual influenza [id number] Adjustment disorder with depressed moodComments:Reviewed adverse side effects of medication. Advised to call the office if experiencing symptoms. Patient verbalized understanding. Take medication for at least one week as it can take 1 week to build tolerance to side effects of medication. 4-6 weeks for full medication effect. Take medication daily,consider therapy if not already started. Call office right away if symptoms worsen including worsening mood/anxiety or suicidal ideation. Suicide prevention hot line/Crisis line: or 016-729- 4336Ovailable 24 hours a day, 7 days a week . It is free and confidential. https ://suicidepreventionlifeline.org/ Follow up in 4-6 weeks or sooner if concerns arisetrial of lexaproAllNew Medication:Escitalopram Oxalate 5 mg - 1 by mouth every dayComments:Medication Management Patient Understands medications she's taking? Yes No Are there Barriers to Adherence? Yes No Has the patient been asked about herbal supplements and therapies, and OTC meds? Yes No Functional Status Description No Information Available Mental Status Description No Information Available Referrals Description No Information Available
[2019-04-13 12:03] LABS: ABS Lymphocytes 0.8 10^3/ul (1.0-4.8); ABS Monocytes 0.1 10^3/ul (0-0.8); ABS Neutrophils 12.8 10^3/ul (1.5-7.7); Eosinophil % 0.1 %; Hematocrit 35 % (35-47); Hemoglobin 11.9 g/dL (12.0-16.0); Lymphocyte % 5.8 %; Mean Corpuscular HGB Conc 34 g/dL (31-36); Mean Corpuscular Hemoglobin 29 pg (27-31); Mean Corpuscular Volume 85 fL (80-97); Mean Platelet Volume 8.3 fL (7.4-10.4); Nucleated Red Blood Cells % 0.1; Platelet Count 252 10^3/uL (150-450); Red Cell Distribution Width 14 % (10-15); White Blood Count 13.8 10^3/uL (3.5-10.8)
[2019-04-13] MEDS ORDERED: Azithromycin TAB* 250 MG PO ONE (12:07)
[2019-04-13 12:20] LABS: ALT 7 U/L (7-52); AST 17 U/L (13-39); Albumin 3.4 g/dL (3.2-5.2); Albumin/Globulin Ratio 0.9 (1-3); Alkaline Phosphatase 71 U/L (34-104); Anion Gap 10 mmol/L (2-11); BUN/Creatinine Ratio 13.6 (8-20); Blood Urea Nitrogen 9 mg/dL (6-24); CO2 Carbon Dioxide 22 mmol/L (22-32); Calcium 8.3 mg/dL (8.6-10.3); Chloride 105 mmol/L (101-111); EGFR African American 133.1 (>60); Globulin 3.7 g/dL (2-4); Glucose 113 mg/dL (70-100); Potassium 3.2 mmol/L (3.5-5.0); Sodium 137 mmol/L (135-145); Total Protein 7.1 g/dL (6.4-8.9)
[2019-04-13 12:22] LABS: Troponin I 0.01 ng/mL (<0.03)
[2019-04-13 12:26] LABS: HCG Pregnancy < 0.60 mIU/mL
[2019-04-13 13:07] VITALS: BP 122/84
== END 2019-04-13 13:06 | disposition home or self-care (01) ==
LOC: ED 11:20
DX: J18.9 Pneumonia, unspecified organism (principal); R06.00 Dyspnea, unspecified; F41.9 Anxiety disorder, unspecified; R53.83 Other fatigue; R07.9 Chest pain, unspecified; R05 Cough
CPT/HCPCS: 36415; 71046; 80053; 84484; 84702; 85025; 85379; 93005; 96360; 99284; A9270-GY